=== PATIENT | male | born 1970 | race Two or more races ===

== ENCOUNTER 2019-05-29 08:17 | Day surgery (SDC) | payer OTHER ==
[~2019-05-29 08:17] MED LIST: AMILODIPINE PO; FORTAMET500 MG; HYDROCHL PO; LOSARTAN-HCTZ1 EAC1 PO; NASAL MIST126 ML
== END 2019-05-29 20:50 | disposition home or self-care (01) ==
LOC: CIR.AMB 08:17
DX: K64.8 Other hemorrhoids (principal); K64.4 Residual hemorrhoidal skin tags